=== PATIENT | female | born 1960 | race Caucasian/White ===

== ENCOUNTER 2020-02-10 09:16 | Emergency (ER) | payer MEDICAID ==
[~2020-02-10] VITALS: Ht 160 cm; Wt 56.8 kg
[2020-02-10 09:23] VITALS: BP 167/95
[2020-02-10] MEDS ORDERED: POVIDONE-IODINE 10% 15 ML SOLUTION UD TP ONE (11:15)
[2020-02-10] MEDS ORDERED: LIDOCAINE 1% 10 ML VIAL ID ONE (11:15)
[2020-02-10] MEDS ORDERED: DOXYCYCLINE HYCLATE 100 MG TABLET PO ONE (11:15)
[2020-02-10] MEDS ORDERED: HYDROCODONE/ACETAMINOPHEN 5-325 MG TABLET PO ONE (11:15)
[2020-02-10] MEDS ORDERED: GLIM2 PO (11:27)
== END 2020-02-10 13:17 | disposition home or self-care (01) ==
LOC: EMS 09:20
DX: L02.01 Cutaneous abscess of face (principal); L03.211 Cellulitis of face
CPT/HCPCS: 10060; 99283; J3490

== ENCOUNTER 2020-02-13 10:36 | Emergency (ER) | payer MEDICAID ==
[~2020-02-13] VITALS: Ht 154.9 cm; Wt 54.5 kg
[~2020-02-13 10:36] MED LIST: GLIM2 PO
[2020-02-13 10:55] VITALS: BP 109/78
== END 2020-02-13 13:09 | disposition home or self-care (01) ==
LOC: EMS 10:36
DX: L02.01 Cutaneous abscess of face (principal); E11.9 Type 2 diabetes mellitus without complications; F17.210 Nicotine dependence, cigarettes, uncomplicated
CPT/HCPCS: Z7502

== ENCOUNTER 2020-11-10 13:10 | Emergency (ER) | payer MEDICAID ==
[~2020-11-10] VITALS: Ht 160 cm; Wt 75.0 kg
[2020-11-10 14:38] LABS: APPEARANCE,URINE CLEAR (CLEAR); BILIRUBIN,URINE NEGATIVE (NEGATIVE); GLUCOSE, URINE (UA) >=1000 mg/dL (NEGATIVE); KETONES,URINE NEGATIVE (NEGATIVE); LEUKOCYTE ESTERASE ,URINE MODERATE (NEGATIVE); NITRATE,URINE NEGATIVE (NEGATIVE); OCCULT BLOOD,URINE NEGATIVE (NEGATIVE); PROTEIN,URINE NEGATIVE (NEGATIVE); UROBILINOGEN,URINE 0.2 mg/dL (<=1.0)
[2020-11-10 14:44] LABS: BASOPHILS % (AUTO) 0.9 % (0.0-2.0); EOSINOPHILS % (AUTO) 1.3 % (1.0-6.0); HEMATOCRIT 43.6 % (36-46); LYMPHOCYTES # (AUTO) 2.5 K/uL (1.0-4.8); LYMPHOCYTES % (AUTO) 42.9 % (22.0-44.0); MEAN CORPUSCULAR HGB CONC 32.3 G/dL (31.0-37.0); MEAN CORPUSCULAR VOLUME 87 fL (80-100); MONOCYTES # (AUTO) 0.5 K/uL (0.1-1.0); MONOCYTES % (AUTO) 9.1 % (2.0-9.0); NEUTROPHILS # (AUTO) 2.7 K/uL (1.8-7.7); NEUTROPHILS % (AUTO) 45.8 % (40.0-70.0); PLATELET COUNT (AUTO) 290 K/uL (150-450); RED BLOOD CELL COUNT(AUTO) 5.02 MIL/uL (4.00-5.20); RED CELL DISTRIBUTION WIDTH 13.4 % (11.5-14.5)
[2020-11-10 14:47] LABS: BACTERIA,URINE None Seen /HPF (None Seen); RBC,URINE None Seen /HPF (0-2); SQUAMOUS EPITHELIAL CELL,UR Few /LPF (None Seen)
[2020-11-10 14:53] LABS: ANION GAP 4 mmol/L (8-16); CARBON DIOXIDE 28 mmol/L (22-29); CHLORIDE 107 mmol/L (98-107); CREATININE 0.81 mg/dL (0.60-1.30); GLOMERULAR FILTR. RATE CALC > 60 mL/min (>60); GLUCOSE,RANDOM 168 mg/dL (70-110); POTASSIUM 4.8 mmol/L (3.5-5.1); SODIUM SERUM 139 mmol/L (136-145); UREA NITROGEN, BLOOD 11 mg/dL (7-18)
[2020-11-10 14:57] LABS: B-TYPE NATRIURETIC PEPTIDE 27 pg/mL (0-100)
[2020-11-10 15:00] LABS: ALANINE AMINOTRANSFERASE 56 U/L (12-78); ALBUMIN 3.7 g/dL (3.4-5.0); ALKALINE PHOSPHATASE 95 U/L (46-116); ASPARTATE AMINOTRANSFERASE 29 U/L (15-37); BILIRUBIN,TOTAL 0.6 mg/dL (0.1-1.0); CREATINE KINASE, TOTAL ONLY 62 U/L (26-192); LIPASE 102 U/L (73-393); TOTAL PROTEIN, SERUM 7.9 g/dL (6.4-8.2)
[2020-11-10] MEDS ORDERED: SODIUM CHLORIDE 0.9% 100 ML ONE (15:25)
[2020-11-10] MEDS ORDERED: IOHEXOL 350 MG/ML 100 ML VIAL ONE (15:25)
[2020-11-10 18:53] VITALS: BP 153/93
[2020-11-10] MEDS ORDERED: METF-960 PO (19:19)
[2020-11-10] MEDS ORDERED: PB/HYOSCY/ATR/SCOP/LIDO/MAALOX 55 ML BOTTLE PO ONE (19:30)
== END 2020-11-10 20:30 | disposition home or self-care (01) ==
LOC: EMS 13:10
DX: R10.9 Unspecified abdominal pain (principal); R91.1 Solitary pulmonary nodule
CPT/HCPCS: 36415; 74177; 80053; 81001; 82550; 82962; 83690; 83735; 83880; 84484; 85025; 93005; 99285; J7050; Q9967